=== PATIENT | male | born 1975 | race Caucasian/White ===

== ENCOUNTER 2020-04-08 10:11 | Emergency (ER) | payer BC, SELFPAY ==
[2020-04-08 10:14] VITALS: BP 134/103; PULSE 107; RESP 18; TEMP 36.3; O2SAT 96; BMI 34.9
--- NOTE | 2020-04-08 10:32 | ED.VIS.GEN ---
History of Present Illness Chief Complaint: Upper Extremity Injury Detail of Chief Complaint: Atraumatic neck and upper back pain Informant: Patient Onset: Weeks - 2 weeks ago Context: Sudden Onset Timing: Continuous, Waxes and wanes Quality: Pain and spasm Location: Right posterior neck and trapezius/shoulder region Current Severity: Mild Maximum Severity: Severe Worsened by: Movement of head in any direction and palpation over areas of discomfort Relieved by: Nothing better with ice Associated Symptoms: No neurovascular symptoms Narrative: Patient presents with atraumatic right-sided posterior neck pain. Onset 2 weeks ago. Pain noted upon awakening. He denies radicular pain. He denies paresthesia, anesthesia or motor weakness. Pain is worse with movement and use of heating pad. He states ice helps significantly. He was prescribed NSAID and muscle relaxant . He does have type 2 diabetes. He has been diabetic for 7 years. He does not know if he has renal dysfunction or not. He denies cardiac or respiratory symptoms. He denies headache. He denies visual, ocular auditory symptoms. Prior similar symptoms: No Recent Illness/Hospitalization: No - Past Medical History (1) History of type 2 diabetes mellitus Status: Acute Past Medical History - Allergies and Home Meds Allergies/Adverse Reactions: Allergies No Known Allergies Allergy (Verified 04/08/20 10:11) Primary Care Physician: Idris Dalton MD [Primary Care Provider] - Prior records reviewed: Yes Lives: Spouse/ Significant Other, With Family Smoking Status: Current every day smoker Alcohol: Rare Drugs: None Review of Systems General: Denies: Chills, Fever, Malaise, Subjective, Sweats Eyes: Denies: Visual changes - bilaterally, Blurred Vision - bilaterally ENT: Denies: Bilateral ear pain, Rhinorrhea, Sore throat Cardiovascular: Denies: Chest pain, Palpitations Respiratory: Denies: Dyspnea, Cough Musculoskeletal: Reports: Neck pain. Denies: Myalgias, Arthralgias, Back pain, Swelling, Extremity Pain Neurological: Denies: Headache, Weakness, Parasthesia, Numbness Hematologic: Denies: Easy bruising Physical Exam Vital Signs/Narrative: Vital Signs Temp Pulse Resp BP Pulse Ox 04/08/20 10:14 97.4 F L 107 H 18 134/103 H 96 Inital Vital Signs reviewed: Yes General: Well nourished, Well developed, Obese, No Acute Distress Head: Normocephalic, Atraumatic Eyes: Perrl, EOMI. Negative for: Pale conjunctiva, Scleral icterus Neck: Supple, No lymphadenopathy, No JVD, - - There is pain palpation over the posterior neck on the right side and over the trapezius area.. Negative for: Nontender Skin: Normal color, No rash, No Trauma. Negative for: Cyanosis, Diaphoresis, Jaundice Neurological: Alert, Oriented x3, Cranial nerves II-XII grossly intact, Normal Strength, Normal Sensation, Normal DTR Psychological: Normal affect, Normal Mood Diagnostic/Tx/Re-eval - Medical Decision Making History and physical is consistent with muscle skeletal pain. History is not consistent with herniated disc. Will treat with opiate analgesia since he has type 2 diabetes and Valium for muscle relaxation. He also was instructed to discontinue heat application. ED Disposition - Plan for ED Patient: Disposition: Home or Assisted Living Diagnosis: Neck pain on right side, Pain of right shoulder region Instructions: ED Neck Pain Prescriptions: Hydrocodone Bitart/Apap 5-325 [[place] 5MG-325MG] 1 tab PO Q6H PRN PRN 3 Days #10 tab PRN Reason: Pain Prescription Printed Diazepam [Valium] 5 mg PO Q8 PRN #10 tab PRN Reason: Muscle Spasm Prescription Printed Referrals: Idris Dalton MD [Primary Care Provider] - 1 Week if not improving Additional Instructions: 1. Do not apply heat to the area. 2. Apply ice 6-8 times a day for 20 to 30 minutes. 3. Stop taking the muscle relaxant you were prescribed. 4. With history of diabetes you should not take ibuprofen or NSAIDs. 5. Medication you prescribed may make you drowsy.
[2020-04-08] MEDS: HYDROcodone Bitartrate/Apap 5/325 Tablet PO (10:54)
[2020-04-08] MEDS: diazePAM 5 MG Tablet PO (10:54)
== END 2020-04-08 11:12 | disposition home or self-care (01) ==
LOC: ED 11:01
PROVIDERS: Emergency Provider Emergency Medicine; PCP Family Medicine
DX: M54.2 Cervicalgia (principal); M25.511 Pain in right shoulder; E11.9 Type 2 diabetes mellitus without complications; Z79.84 Long term (current) use of oral hypoglycemic drugs; F17.200 Nicotine dependence, unspecified, uncomplicated
CPT/HCPCS: 99283

== ENCOUNTER → 2020-05-11 10:11 | Outpatient (CLI) | payer BC, SELFPAY ==
--- NOTE | 2020-05-11 10:25 | EKG12_ITS ---
Test Reason : PREOP Blood Pressure : / mmHG Vent. Rate : 106 BPM Atrial Rate : 106 BPM P-R Int : 158 ms QRS Dur : 086 ms QT Int : 328 ms P-R-T Axes : 047 041 033 degrees QTc Int : 435 ms Sinus tachycardia Low voltage QRS Septal infarct , age undetermined Abnormal ECG Confirmed by DAVID DAVIS, RUBY ([id number]), social media editor DUNG BISHOP ([id number]) on 05/11/2020 12:59:03 PM Referred By: Narinder Luu Confirmed By:RUBY HERNANDEZ MD
--- NOTE | 2020-05-11 10:30 | RAD_ITS ---
STUDY: X-RAY CHEST REASON FOR EXAM: Male, 45 years old. PRE OP, No chest complaints TECHNIQUE: PA and lateral views of the chest. COMPARISON: 10/05/2016 FINDINGS: The lungs are clear and expanded. There is no demonstrated pleural abnormality. Normal size heart. Normal mediastinum and azam. Normal visualized pulmonary arteries. Normal visualized aortic arch and descending thoracic aorta. Normal visualized thoracic spine. Normal visualized ribs, clavicles, and shoulders. There is no demonstrated abnormality of the visualized soft tissue structures of the upper abdomen. RAD/Chest PA and Lateral IMPRESSION: Normal x-ray examination of the chest. Electronically Signed: Prabhu Salazar MD at 10:46 EST Tel , Service support ,
[2020-05-11 10:57] LABS: Absolute Lymphocyte Count 3.41 X10^3/uL (0.83-4.51); Absolute Neutrophil Count 7.3 X10^3/uL (2.0-7.7); Basophil# 0.06 X10^3/uL; Basophil% 0.5 % (0-1); Eosinophil# 0.27 X10^3/uL; Eosinophils% 2.3 % (0-5); Hematocrit 49.4 % (40-54); Hemoglobin 17.5 g/dL (13.0-16.5); Lymphocyte # 3.41 X10^3/ul (4.0); Lymphocyte % 28.9 % (19-41); Mean Corp Hgb Conc 35.4 g/dL (32-36); Mean Corpuscular Hgb 34.6 pg (27.0-32.0); Mean Corpuscular Volume 97.6 fL (80-94); Mean Platelet Vol. 9.8 fl (6.2-12.0); Monocyte% 5.9 % (0-10); NRBC Flagged by Analyzer 0 % (0-5); Neutrophil # 7.29 X10^3/uL (2.7-7.7); Platelet Count 272 K/mm3 (150-450); RBC Distribution Width CV 12.8 % (11.6-14.6); Red Blood Count 5.06 M/mm3 (4.6-6.2); White Blood Count 11.8 K/mm3 (4.4-11.0)
[2020-05-11 11:02] LABS: Anion Gap 7 (5-15); BUN 26 mg/dL (7-18); Calcium,Total 9.3 mg/dL (8.5-10.1); Chloride 105 mmol/L (98-107); Creatinine, Serum 1.04 mg/dL (0.70-1.30); EST Glomerular Filtration Rate 82 mL/min (>60); Est Glom Filt Rate - Afr Amer 99 mL/min (>60); Glucose 195 mg/dL (74-106); Potassium 4.2 mmol/L (3.5-5.1); Sodium Level 137 mmol/L (136-145)
[2020-05-11 11:03] LABS: International Normalized Ratio 0.9; Partial Thromboplast Time 25.1 Seconds (24.1-36.2); Prothrombin Time (Protime)PT. 11.7 SECONDS (11.7-14.9)
== END ==
PROVIDERS: PCP Family Medicine; Referring Provider Orthopaedic Surgery; Visit Provider Orthopaedic Surgery
DX: M50.223 Other cervical disc displacement at C6-C7 level (principal); M50.123 Cervical disc disorder at C6-C7 level with radiculopathy; E66.9 Obesity, unspecified
CPT/HCPCS: 36415; 71046; 80048; 83036; 85025; 85610; 85730; 93005

== ENCOUNTER → 2020-05-17 10:40 | Outpatient (CLI) | payer BC, SELFPAY ==
--- NOTE | 2020-05-17 10:42 | ECHOCS_ITS ---
Reason For Study: Dyspnea/SOB Procedure This was a 2D Doppler, Color Flow transthoracic echocardiogram. The study was technically difficult. Contrast injection was performed. Exam performed in department. Left Ventricle Normal LV size. Left ventricular systolic function is normal. The estimated ejection fraction is 55 %. Stage 1 diastolic dysfunction. No regional wall motion abnormalities noted. Right Ventricle Normal RV size. Normal systolic function. Atria Normal left atrium. Mitral Valve Normal mitral valve. Tricuspid Valve Normal tricuspid valve. Aortic Valve The aortic valve is not well visualized. Pulmonic Valve Normal pulmonic valve. Great Vessels Normal aortic root. The pulmonary artery is normal size. Normal inferior vena cava. Pericardium/Pleural No pericardial effusion. Medication 22 gauge I.V. with prn adaptor inserted into right arm. Diluted definity 4ml given slow IV push to enhance endocardial definition. MMode/2D Measurements & Calculations LVIDd: 4.4 cm IVSd: 1.1 cm Ao root diam: 3.9 cm LVIDs: 3.2 cm LVPWd: 1.3 cm LA dimension: 3.4 cm FS: 26.4 % LAV(MOD-bp): 42.2 ml LA A4 area: 15.1 cm2 RA A4 area: 15.4 cm2 LAV(MOD-bp) Indexed: 16.5 ml/m2 LAV(MOD-sp2): 45.0 ml LAV(MOD-sp4): 37.9 ml Time Measurements MV dec time: 0.23 sec Doppler Measurements & Calculations MV E max hadley: 67.6 cm/sec Lat Peak E' Hadley: 8.8 cm/sec Med Peak E' [place]ley: 7.6 cm/sec MV A max hadley: 92.9 cm/sec E/E' lat: 7.6 E/E' med: 8.9 MV E/A: 0.73 MV V2 max: 88.6 cm/sec MV P1/2t max hadley: 64.8 cm/sec Ao V2 max: 113.6 cm/sec MV max P.1 mmHg MV P1/2t: 59.1 msec Ao max P.2 mmHg MV V2 mean: 46.4 cm/sec MV dec slope: 321.1 cm/sec2 MV mean P.0 mmHg MV V2 VTI: 15.8 cm MVA(P1/2t): 3.7 cm2 LV V1 max: 111.3 cm/sec PA V2 max: 93.4 cm/sec LV V1 max P.0 mmHg Interpretation Summary Normal LV size. Left ventricular systolic function is normal. The estimated ejection fraction is 55 %. Stage 1 diastolic dysfunction. Contrast injection was performed. Ordering Physician: Doron Lee Referring Physician: Idris Dalton Performed By: Saroj Almazan RCS
== END ==
PROVIDERS: PCP Family Medicine; Visit Provider Internal Medicine Cardiovascular Disease
DX: R06.02 Shortness of breath (principal)
CPT/HCPCS: 93306; Q9957; A4216; C8929

== ENCOUNTER 2021-06-10 10:39 | Emergency (ER) | payer BC, SELFPAY ==
--- NOTE | 2021-06-10 11:15 | RAD_ITS ---
STUDY: X-RAY - RIGHT KNEE REASON FOR EXAM: Male, 46 years old. TWISTING INJURY YESTERDAY, PAINFUL TO BEAR WEIGHT TECHNIQUE: 4 view(s) of the knee. COMPARISON: None. FINDINGS: Normal visualized distal femur. Normal visualized proximal tibia and fibula. Normal proximal tibiofibular articulation. There is no demonstrated fracture. Status post anterior cruciate ligament repair. Surgical screw traversing the distal femur. Mild narrowing of the medial joint compartment. Chondrocalcinosis. There is a soft tissue prominence in the suprapatellar region suggesting a small volume joint effusion. The soft tissue structures are unremarkable. RAD/Knee 4 or More Views IMPRESSION: Postoperative changes. No demonstrated acute fracture. Small joint effusion. Electronically Signed: Kevin Suh, at 11:32 EST ,
--- NOTE | 2021-06-10 12:29 | EDS_ITS ---
DATE OF SERVICE 06/10/21 CHIEF COMPLAINT: Right knee pain. HISTORY OF PRESENT ILLNESS: This patient is a 46-year-old male who presents with right knee pain that began yesterday. The patient thinks that he twisted his right knee. The patient states that the pain is sharp and stabbing. The patient has had a prior ACL repair of his right knee. The patient is concerned that there may be something damaged with his repair. He states that his pain is worse with ambulation. He states that it is better with rest. He denies any paresthesias or weakness. PAST MEDICAL HISTORY: Diabetes and hypertension. PAST SURGICAL HISTORY: C6-C7 fusion, left shoulder surgery and right knee ACL repair. CURRENT MEDICATIONS: Metformin, Glyburide, Crestor, Farxiga, Fenofibrate, and Lisinopril. SOCIAL HISTORY: The patient smokes 1/2 pack of cigarettes per day. The patient denies any alcohol or drug use. REVIEW OF SYSTEMS: The patient denies any fever or chills. Eyes: The patient denies any visual changes or blurry vision. ENT: The patient denies any sore throat or rhinorrhea. Cardiac: The patient denies any chest pain or palpitations. Pulmonary: The patient denies any shortness of breath or cough. GI: The patient denies any nausea or vomiting. : The patient denies any dysuria or hematuria. MUSCULOSKELETAL: The patient denies any neck pain or back pain. The patient admits to right knee pain as stated in chief complaint. SKIN: The patient denies any rashes or boils. NEUROLOGIC: The patient denies any paresthesias, weakness or headaches. ALLERGIES: Denies hives or swelling. PHYSICAL EXAMINATION: GENERAL: No acute distress. VITAL SIGNS: Stable, afebrile. MUSCULOSKELETAL: Tenderness over the right knee. There is limited range of motion and flexion of the right knee secondary to pain. There is guarding with examination. There is no ligamentous laxity appreciated. Pedal pulses are equal bilaterally. Sensation is intact to light touch in all digits. Capillary refill is less than 2 seconds in all digits. Strength is 5/5 bilaterally in lower extremities. There are no sensory deficits noted. DIAGNOSTIC DATA: X-rays of the right knee show postoperative changes. There is no acute fracture. There is small joint effusion. There were 4 views. These were interpreted by me. They were also interpreted by the radiologist. EMERGENCY DEPARTMENT COURSE AND MEDICAL DECISION MAKING: The patient was given a dose of [place] here. PLAN: The patient was given a prescription for a short course of [place]. The patient was advised of the x-ray results. The patient was instructed to ice and elevated the right knee. The patient was instructed to follow up with his primary care physician in 5-7 days. The patient was instructed to return if worse in any way. The patient understood and was agreeable with the plan all questions were answered. DIAGNOSIS: 1. Right knee sprain DISPOSITION: Patient was discharged home CONDITION: Stable
== END 2021-06-10 12:42 | disposition home or self-care (01) ==
PROVIDERS: Emergency Provider Emergency Medicine; PCP Family Medicine; Visit Provider Emergency Medicine
DX: S83.91XA Sprain of unspecified site of right knee, initial encounter (principal); E11.9 Type 2 diabetes mellitus without complications; Z79.4 Long term (current) use of insulin; X50.1XXA Overexertion from prolonged static or awkward postures, initial encounter; Y93.9 Activity, unspecified; Y92.9 Unspecified place or not applicable; I10 Essential (primary) hypertension; F17.210 Nicotine dependence, cigarettes, uncomplicated; Z79.899 Other long term (current) drug therapy
CPT/HCPCS: 73564; 99283

== ENCOUNTER 2022-04-04 00:21 | Day surgery (SDC) | payer BC, SELFPAY ==
[2022-04-04] VITALS (16 sets, daily range): BP systolic 123–165; BP diastolic 68–105; PULSE 81–112; RESP 15–20; TEMP 36–37.4; O2SAT 91–97; BMI 35.6
--- NOTE | 2022-04-04 00:38 | EDS_ITS ---
HPI HPI - GI History of Present Illness Chief Complaint: Abd Pain Informant: patient Abdominal Pain/Flank Pain Onset: Today Context: Sudden Onset Timing: Continuous Quality: Cramping and Stabbing Location: Diffuse Worsened by: - (Laying on his side) Relieved by: Nothing Nausea/Vomiting/Emesis GI Symptom: Positive for Nausea; Negative for Vomiting Diarrhea/Melena/Hematochezia GI Symptom: Negative for Diarrhea, Melena or Hematochezia Associated Symptoms Associated Symptoms: Negative for Dysuria, Frequency or Hematuria Narrative Narrative: Patient presents with abdominal pain that began today. Patient states it began rather suddenly. Patient states it has been constant since this afternoon. Patient states he had 2 bowel movements earlier today and after the second 1 he started having some pain. Patient states it is diffuse across his abdomen. Patient states it is worse when he lays on his side. Patient admits to some nausea but denies any vomiting. Patient denies any diarrhea, melena, or hematochezia. Patient denies any dysuria, frequency, or hematuria. Patient denies any fevers or chills. Patient states the last time he had anything to eat was dinner last evening at approximately 6:[address] PM[address] [facility] Medical History (Updated 04/04/22 @ 03:[address] Piyush Rasmussen, DO) Depression Hyperlipidemia Nicotine dependence Obesity Type 2 diabetes mellitus Home Medications metformin 1,000 mg tablet 1,000 mg PO BIDCM 04/29/15 [History Last Taken Unknown] rosuvastatin 20 mg tablet 20 mg PO DAILY 04/29/15 [History Last Taken Unknown] dapagliflozin 10 mg tablet 10 mg PO DAILY 03/25/16 [History Last Taken Unknown] fenofibrate 160 mg tablet 160 mg PO DAILY 05/17/20 [History Last Taken Unknown] glyburide 5 mg tablet 15 mg PO BID 05/17/20 [History Last Taken Unknown] insulin degludec 100 unit/mL (3 mL) subcutaneous pen 10 unit subcut DAILY 05/17/20 [History Last Taken Unknown] meloxicam 15 mg tablet (Mobic) 15 mg PO DAILY 05/17/20 [History Last Taken Unknown] paroxetine HCl 30 mg tablet (Paxil) 30 mg PO DAILY 05/17/20 [History Last Taken Unknown] tizanidine 4 mg tablet 4 mg PO Q6H PRN muscle spasms 05/17/20 [History Last Taken Unknown] Allergy/AdvReac Type Severity Reaction Status Date / Time No Known Allergies Allergy Verified 05/17/20 11:38 Family History Mother Heart disease afib CMP Father Heart disease PPM Surgical History (Updated 04/04/22 @ 00:[address] Piyush Rasmussen DO) History of open reduction and internal fixation (ORIF) procedure History of shoulder surgery Hx of fusion of cervical spine Social History Smoking Status: Current every day smoker tobacco type: cigarettes Tobacco: How many years used: 15 ROS ROS ED Constitutional Constitutional ED: Denies chills or fever(s) Eyes Eyes: Denies blurry vision or change in vision ENT ENT ED: Denies rhinorrhea or sore throat Cardiovascular Cardiovascular: Denies chest pain or palpitations Respiratory/Chest Respiratory/Chest: Reports dyspnea; Denies cough Gastrointestinal Gastrointestinal: Reports abdominal pain and nausea; Denies vomiting Genitourinary Genitourinary ED: Denies dysuria or hematuria Musculoskeletal Musculoskeletal: Denies back pain or neck pain Integumentary Denies abscess or rash Neurologic Neurologic: Denies headache(s) or weakness Allergic/Immunologic Allergic/Immunologic ED: Denies mouth swelling or urticaria EXAM Physical Exam Const Vital Signs: 04/04/22 00:22 Temperature 96.8 F L Temperature Source Temporal Pulse Rate 88 Respiratory Rate 15 Blood Pressure 165/105 H Blood Pressure Mean 125 Pulse Ox 97 Oxygen Delivery Method Room Air Positive well nourished and well developed General Appearance ED: well developed HEENT Reports moist mucous membranes Neck supple and no JVD Resp normal respiratory effort and clear to auscultation bilaterally Cardio regular rate, regular rhythm and no murmurs GI normal to inspection, nondistended, normoactive bowel sounds Palpation: soft and tender epigastric, LLQ, RLQ, LUQ, RUQ, periumbilical and suprapubic; Negative for guarding or rebound tenderness present Extremity normal to inspection General Extremety ED: Negative for edema or tenderness General Extremity: Negative for edema Neuro oriented x3, CN's II-XII intact bilaterally and no sensory deficits noted Sensorium / Orientation: alert Motor Exam: strength 5/5 throughout Psych mental status grossly normal Skin no rashes or lesions noted MDM MDM MDM Narrative Medical decision making narrative: Patient was given IV fluids. Patient was given morphine and Zofran. CBC shows normal white blood cell count. Hemoglobin was 17.8. Comprehensive metabolic profile showed a slightly elevated glucose of 204. Lipase was normal. Lactate was normal. Urinalysis does not show any evidence of urinary tract infection. CT scan of the abdomen and pelvis was obtained. There is a thick-walled appendix consistent with appendicitis. This was interpreted by the radiologist and reviewed by myself. Patient was given IV Zosyn. Case was discussed with Dr. Ko. She will plan on taking the patient to the operating room this morning. Patient will be here in the emergency department until that time. Patient was given a repeat dose of Dilaudid. EKG was obtained. On my interpretation, it shows a normal sinus rhythm with a rate of 83. [place] interval, QRS overall, and QTc intervals are within normal limits. [place] is normal. There are no acute ST or T wave changes. There is poor R wave progression. Patient understood and was agreeable with the plan. All questions were answered. Lab Data Attestation: I reviewed the patient's lab results. Labs: Laboratory Results - last 24 hr 04/04/22 04/04/22 04/04/22 00:25 00:25 01:06 WBC 7.3 RBC 5.47 Hgb 17.8 H Hct 52.1 MCV 95.2 H MCH 32.5 H MCHC 34.2 RDW Std Deviation 42.3 RDW Coeff of Kraig 12.0 Plt Count 227 MPV 9.9 Immature Gran % (Auto) 0.100 Neut % (Auto) 63.7 Lymph % (Auto) 27.0 [place] % (Auto) 8.1 Eos % (Auto) 0.8 Baso % (Auto) 0.3 Absolute Neuts (auto) 4.6 Absolute Lymphs (auto) 1.96 Nucleated RBC % 0 Sodium 138 Potassium 4.2 Chloride 104 Carbon Dioxide 27.0 Anion Gap 7 BUN 14 Creatinine 0.85 Estim Creat Clear Calc 127.03 Est GFR (MDRD) Af Amer 124 Est GFR (MDRD) Non-Af 103 BUN/Creatinine Ratio 16.5 Glucose 204 H Lactic Acid 1.3 Calcium 9.1 Total Bilirubin 0.30 AST 27 ALT 48 Alkaline Phosphatase 53 Total Protein 7.3 Albumin 3.8 Globulin 3.5 Albumin/Globulin Ratio 1.1 Lipase 259 Urine Color Urine Clarity Urine pH Ur Specific [place] Urine Protein Urine Glucose (UA) Urine Ketones Urine Occult Blood Urine Nitrite Urine Bilirubin Urine Urobilinogen Ur Leukocyte Esterase Urine RBC Urine WBC Ur Squamous Epith Cells Amorphous Sediment Urine Bacteria Urine Mucus 04/04/22 02:15 WBC RBC Hgb Hct MCV MCH MCHC RDW Std Deviation RDW Coeff of Kraig Plt Count MPV Immature Gran % (Auto) Neut % (Auto) Lymph % (Auto) [place] % (Auto) Eos % (Auto) Baso % (Auto) Absolute Neuts (auto) Absolute Lymphs (auto) Nucleated RBC % Sodium Potassium Chloride Carbon Dioxide Anion Gap BUN Creatinine Estim Creat Clear Calc Est GFR (MDRD) Af Amer Est GFR (MDRD) Non-Af BUN/Creatinine Ratio Glucose Lactic Acid Calcium Total Bilirubin AST ALT Alkaline Phosphatase Total Protein Albumin Globulin Albumin/Globulin Ratio Lipase Urine Color Yellow Urine Clarity Clear Urine pH 7.0 Ur Specific [place] 1.015 Urine Protein Negative Urine Glucose (UA) 1000 H Urine Ketones Negative Urine Occult Blood Negative Urine Nitrite Negative Urine Bilirubin Negative Urine Urobilinogen Normal Ur Leukocyte Esterase Negative Urine RBC 0 SEEN Urine WBC 0 SEEN Ur Squamous Epith Cells 0 SEEN Amorphous Sediment 1+ Urine Bacteria 1+ Urine Mucus 0 SEEN Radiography Diagnostic Testing: Clinical Impression(s) from Imaging Studies Abdomen/Pelvis CT 04/04/22 00:41 IMPRESSION: There is a tubular, thick-walled appendix (>7mm), consistent with acute appendicitis. Electronically Signed: Robin Gilmore MD at 2:58 EST Reading Location ID and State: [facility] / [place] Tel , Service support , ADDENDUM: 04/04/22 0305 IMPRESSION: There is a tubular, thick-walled appendix (>7mm), consistent with acute appendicitis. N.B. : The above Results were Read Back by Robin Gilmore MD to Dr.Eric Grady DO, and understanding confirmed on 04/04/2022 03:01:59 (ET). Electronically Signed: Robin Gilmore MD at 2:58 EST , EKG Initial EKG: Attestation: I personally reviewed and interpreted this EKG as follows: Interpretation: Sinus Rhythm (83) and No Acute Injury Pattern Prior EKG tracings: available for review Prior: Unchanged (10/05/2016) Discharge Plan Dx/Rx/DC Orders Clinical Impression: Acute appendicitis, Type 2 diabetes mellitus Disposition Disposition: Acute Care Hospital [facility]
--- NOTE | 2022-04-04 00:41 | CT_ITS ---
We are attempting to reach an attending provider to discuss findings. An addendum with communication details will be sent when the communication is complete. STUDY: CT ABDOMEN AND PELVIS WITH CONTRAST REASON FOR EXAM: Male, 47 years old. Abdominal pain -- IV PO Contrast RADIATION DOSAGE (If Supplied By Facility): CTDIvol = ( 29.92 ) mGy, DLP = ( 1815.09 ) mGycm TECHNIQUE: Transaxial images were obtained from the dome of the diaphragm to the symphysis pubis without oral contrast. Oral and amp; IV Gastrografin and amp; 100mL Isovue-370 was administered. Sagittal and coronal images were reconstructed. Individualized dose optimization techniques were used for this CT. COMPARISON: None. FINDINGS: The visualized lung bases are unremarkable. The visualized portions of the heart are within normal limits. Normal liver. Normal gallbladder and extrahepatic biliary system. Normal spleen. Normal pancreas. Normal bilateral adrenal glands. Normal right kidney. Normal left kidney. Normal visualized stomach. Normal small intestine. Normal colon. There is a tubular, thick-walled appendix (>7mm), consistent with acute appendicitis. Normal abdominal aorta. Normal inferior vena cava. Normal retroperitoneum. Normal urinary bladder. Normal abdominal wall. Normal osseous structures. CT/Abdomen/Pelvis WITH Contrast IMPRESSION: There is a tubular, thick-walled appendix (>7mm), consistent with acute appendicitis. Electronically Signed: Robin Gilmore MD at 2:58 EST ,
[2022-04-04] MEDS: 0.9% Normal Saline 1,000 ML 1000 ML IV ×2 (01:03→03:27)
[2022-04-04] MEDS: Morphine 4 MG/ML Syringe IV ×3 (01:04→04:22)
[2022-04-04] MEDS: Ondansetron 4 MG/2 ML Vial IV (01:04)
[2022-04-04 01:20] LABS: Absolute Lymphocyte Count 1.96 X10^3/uL (0.83-4.51); Absolute Neutrophil Count 4.6 X10^3/uL (2.0-7.7); Basophil# 0.02 X10^3/uL; Basophil% 0.3 % (0-1); Eosinophil# 0.06 X10^3/uL; Eosinophils% 0.8 % (0-5); Hematocrit 52.1 % (40-54); Hemoglobin 17.8 g/dL (13.0-16.5); Lymphocyte # 1.96 X10^3/ul (0.83-4.51); Mean Corp Hgb Conc 34.2 g/dL (32-36); Mean Corpuscular Hgb 32.5 pg (27.0-32.0); Mean Corpuscular Volume 95.2 fL (80-94); Mean Platelet Vol. 9.9 fl (6.2-12.0); Monocyte# 0.59 X10^3/uL; Monocyte% 8.1 % (0-10); NRBC Flagged by Analyzer 0 % (0-5); Neutrophil # 4.63 X10^3/uL (2.7-7.7); Neutrophil % 63.7 % (47-70); Platelet Count 227 K/mm3 (150-450); RBC Distribution Width SD 42.3 fl (35.1-43.9); Red Blood Count 5.47 M/mm3 (4.6-6.2); White Blood Count 7.3 K/mm3 (4.4-11.0)
[2022-04-04 01:37] LABS: ALB/GLOB Ratio 1.1 RATIO (0.9-2.4); AST(SGOT) 27 U/L (15-37); Alanine Aminotransfer ALT/SGPT 48 U/L (16-61); Albumin, Serum 3.8 g/dL (3.2-5.0); Alkaline Phosphatase 53 U/L (45-117); Anion Gap 7 (5-15); BUN 14 mg/dL (7-18); BUN/Creat Ratio 16.5 RATIO (10-20); Calcium,Total 9.1 mg/dL (8.5-10.1); Chloride 104 mmol/L (98-107); Creatinine, Serum 0.85 mg/dL (0.70-1.30); EST Glomerular Filtration Rate 103 mL/min (>60); Est Glom Filt Rate - Afr Amer 124 mL/min (>60); Estimated Creatinine Clearance 127.03 ml/min; Globulin 3.5 g/dL (2.2-4.2); Glucose 204 mg/dL (74-106); Lipase 259 U/L (73-393); Potassium 4.2 mmol/L (3.5-5.1); Protein, Total 7.3 g/dL (6.4-8.2); Sodium Level 138 mmol/L (136-145)
[2022-04-04 01:47] LABS: Lactic Acid 1.3 mmol/L (0.4-1.9)
[2022-04-04 02:28] LABS: Color, Urine Yellow (Yellow); Glucose, Dipstick 1000 mg/dl (Normal); Ketone-Dipstick Negative (Negative); Leukocyte Esterase-Dipstick Negative /ul (Negative); Mucous, Urine 0 SEEN /hpf (<or=2+); Nitrite-Dipstick Negative (Negative); Occult Blood-Urine Negative /ul (Negative); Protein-Dipstick Negative (Negative); Red Blood Cells-Urine 0 SEEN /hpf (0-5); Specific Gravity, Urine 1.015 (1.002-1.030); Squamous Epithelial Cells - UA 0 SEEN /hpf (0-5); Urine Bilirubin Dipstick Negative (Negative); Urine Clarity Clear (Clear); Urine Urobilinogen Normal (Normal); White Blood Cells 0 SEEN /hpf (0-5)
[2022-04-04 02:34] LABS: Amorphous Sediment 1+; Bacteria 1+ /hpf (None Seen)
--- NOTE | 2022-04-04 03:18 | EKG12_ITS ---
Test Reason : DYSRHYTHMIA Blood Pressure : / mmHG Vent. Rate : 083 BPM Atrial Rate : 083 BPM P-R Int : 162 ms QRS Dur : 090 ms QT Int : 360 ms P-R-T Axes : 043 023 032 degrees QTc Int : 423 ms Normal sinus rhythm Low voltage QRS Septal infarct , age undetermined Abnormal ECG Confirmed by DAVID DAVIS, RUBY ([id number]), senior technical editor CRISTOFER TAYLOR ([id number]) on 04/04/2022 9:14:42 AM Referred By: LEANDRO Confirmed By:RUBY HERNANDEZ MD
--- NOTE | 2022-04-04 03:22 | PCM.HP.STD ---
HPI - General General Date of Admission: 04/04/22 HPI Narrative HANY ARZOLA, is a 47 M who presents to the ER due to generalized abdominal pain. This is localized right lower quadrant earlier this morning. CT abdomen pelvis was consistent with acute appendicitis. White blood count within normal limits. Patient never had previous abdominal surgery. [facility] Medical History Depression Hyperlipidemia Nicotine dependence Obesity Type 2 diabetes mellitus Home Medications metformin 1,000 mg tablet 1,000 mg PO BIDCM 04/29/15 [History Last Taken Unknown] rosuvastatin 20 mg tablet 20 mg PO DAILY 04/29/15 [History Last Taken Unknown] dapagliflozin 10 mg tablet 10 mg PO DAILY 03/25/16 [History Last Taken Unknown] fenofibrate 160 mg tablet 160 mg PO DAILY 05/17/20 [History Last Taken Unknown] glyburide 5 mg tablet 15 mg PO BID 05/17/20 [History Last Taken Unknown] insulin degludec 100 unit/mL (3 mL) subcutaneous pen 10 unit subcut DAILY 05/17/20 [History Last Taken Unknown] meloxicam 15 mg tablet (Mobic) 15 mg PO DAILY 05/17/20 [History Last Taken Unknown] paroxetine HCl 30 mg tablet (Paxil) 30 mg PO DAILY 05/17/20 [History Last Taken Unknown] tizanidine 4 mg tablet 4 mg PO Q6H PRN muscle spasms 05/17/20 [History Last Taken Unknown] Allergy/AdvReac Type Severity Reaction Status Date / Time No Known Allergies Allergy Verified 05/17/20 11:38 Family History Mother Heart disease afib CMP Father Heart disease PPM Surgical History History of open reduction and internal fixation (ORIF) procedure History of shoulder surgery Hx of fusion of cervical spine Social History Smoking Status: Current every day smoker tobacco type: cigarettes Tobacco: How many years used: 15 Vital Signs Vital Signs Vital Signs: 04/04/22 00:22 Temperature 96.8 F L Temperature Source Temporal Pulse Rate 88 Respiratory Rate 15 Blood Pressure 165/105 H Blood Pressure Mean 125 Pulse Ox 97 Oxygen Delivery Method Room Air Weight Weight: 284 lb 13.396 oz Body Mass Index (BMI) 35.6 Results Lab / Micro Data Result Diagrams: 04/04/22 00:25 04/04/22 00:25 Labs: Laboratory Results - last 24 hr 04/04/22 00:25: WBC 7.3, RBC 5.47, Hgb 17.8 H, Hct 52.1, MCV 95.2 H, MCH 32.5 H, MCHC 34.2, RDW Std Deviation 42.3, RDW Coeff of Kraig 12.0, Plt Count 227, MPV 9.9, Immature Gran % (Auto) 0.100, Neut % (Auto) 63.7, Lymph % (Auto) 27.0, Yancey % (Auto) 8.1, Eos % (Auto) 0.8, Baso % (Auto) 0.3, Absolute Neuts (auto) 4.6, Absolute Lymphs (auto) 1.96, Nucleated RBC % 0 04/04/22 00:25: Sodium 138, Potassium 4.2, Chloride 104, Carbon Dioxide 27.0, Anion Gap 7, BUN 14, Creatinine 0.85, Estim Creat Clear Calc 127.03, Est GFR (MDRD) Af Amer 124, Est GFR (MDRD) Non-Af 103, BUN/Creatinine Ratio 16.5, Glucose 204 H, Calcium 9.1, Total Bilirubin 0.30, AST 27, ALT 48, Alkaline Phosphatase 53, Total Protein 7.3, Albumin 3.8, Globulin 3.5, Albumin/Globulin Ratio 1.1, Lipase 259 04/04/22 01:06: Lactic Acid 1.3 04/04/22 02:15: Urine Color Yellow, Urine Clarity Clear, Urine pH 7.0, Ur Specific Chapman 1.015, Urine Protein Negative, Urine Glucose (UA) 1000 H, Urine Ketones Negative, Urine Occult Blood Negative, Urine Nitrite Negative, Urine Bilirubin Negative, Urine Urobilinogen Normal, Ur Leukocyte Esterase Negative, Urine RBC 0 SEEN, Urine WBC 0 SEEN, Ur Squamous Epith Cells 0 SEEN, Amorphous Sediment 1+, Urine Bacteria 1+, Urine Mucus 0 SEEN Radiology Impression Abdomen/Pelvis CT 04/04/22 00:41 IMPRESSION: There is a tubular, thick-walled appendix (>7mm), consistent with acute appendicitis. Electronically Signed: Robin Gilmore MD at 2:58 EST , ADDENDUM: 04/04/22 0308 IMPRESSION: There is a tubular, thick-walled appendix (>7mm), consistent with acute appendicitis. N.B. : The above Results were Read Back by Robin Gilmore MD to Dr.Eric Grady DO, and understanding confirmed on 04/04/2022 03:01:59 (ET). Electronically Signed: Robin Gilmore MD at 2:58 EST , Assessment & Plan Assessment/Plan (1) Acute appendicitis: PLAN: Plan 1. Discussed procedure laparoscopic appendectomy, possible open along with the risk but not limited to bleeding, infection/abscess, injury to another organ (small bowel, colon, etc.), adhesion, hernia at incision sites, and anesthesia. Patient no further question this time. Di Ko M.D. Pager: [phone] [facility] [address] [place] [address], [address] [place] [id number] Office: [phone]
[2022-04-04] MEDS: HYDROmorphone 1 MG/ML Syringe 0.5 MG IV (03:28)
--- NOTE | 2022-04-04 06:50 | APP_PTH ---
PATIENT: HANY ARZOLA LOC: [facility] U#:[id number] AGE/SX: 47/M ROOM: RE04/04/[address]: Dr. Di Ko MD : 1975 BED: DIS: 04/04/2022 SPEC #: [id number] RECD: 04/04/22 10:04 STATUS: LOWELL REQ #: [id number] FRANCESCA: 04/04/22 06:[address]: Di Ko DEPT: SURGICAL PATHOLOGY RECD BY: Nadine Hassan ENTERED: 04/04/22 10:27 SP TYPE: APPENDIX OTHR DR: Dr. Idris Dalton MD Tissues: Appendix, NOS Procedures: Surgery Specimen Level III HEADER OPERATION: Laparoscopic appendectomy PRE-OP DIAGNOSIS: Acute appendicitis TISSUE SUBMITTED: Appendix MICROSCOPIC DIAGNOSIS Appendix, appendectomy: Acute appendicitis and periappendicitis. MADAN:santa 04/06/2022 MICROSCOPIC DESCRIPTION Slides are reviewed. GROSS DESCRIPTION Received in fixative is one container labeled with the patient's name and designated appendix. The specimen consists of an appendix measuring 9 cm in length and up to 1 cm in diameter. The attached periappendiceal adipose tissue measures up to 1.5 cm in width. The serosa is congested and covered focally with vyas, purulent exudate. The lumen contains fecal material. No fecalith is identified. Lathe Spotter sections are submitted in two cassettes. / SJ:santa 04/04/2022 TC:2 CPT: 91454
[2022-04-04] MEDS: Bupivacaine 0.25% 30 ML Vial (07:08)
--- NOTE | 2022-04-04 07:18 | OP.PCM_ITS ---
Report of Operation Date of Procedure: 04/04/22 Pre-Operative Diagnosis: Acute appendicitis Post-Operative Diagnosis: Same Surgery/Procedure Performed:: Laparoscopic appendectomy Surgeon: Di Ko Type of Anesthesia: General/Supplemental Anesthesiologist: Brittney Evans Special Medications: Zosyn 4.5 g IV x1 in ER for acute appendicitis Specimen's removed: Appendix Estimated Blood Loss (mL): < 10 cc Description of Procedure: Indications: 47-year-old male presented to the ER with new right lower quadrant pain this morning. On workup he was found to have acute appendicitis on CT and a leukocytosis of 7.3. Patient was started on antibiotics in the ER for acute appendicitis-Zosyn 4.5 g IV x1 Description of the procedure: The patient was placed on operating table in supine position. General anesthesia was induced. A timeout was completed verifying correct patient, procedure, position and special equipment prior to beginning procedure. Abdomen was prepped and draped in usual sterile fashion. Incision was made in the natural skin line above the umbilicus with a 15 blade scalpel. The fascia was elevated and incised. Entry into the peritoneum was confirmed visually and no bowel was noted in the vicinity of the incision. The Kelly trocar was placed under direct vision. Abdomen insufflated with a pressure of 12-15 mmHg. Patient tolerated insertion well. The scope was inserted and the abdomen inspected. No injuries from initial trocar placement were noted. Minimal amount of fluid was seen in the right lower quadrant. An direct visualization 2 -5 mm trocars were placed one above the symphysis pubis and below the hairline and one in the left lower quadrant l ateral to the rectus muscle. Care is taken to avoid injury to the bladder and inferior epigastric vessels. The table was placed in Trendelenburg position with the right side elevated. The appendix was grasped with atraumatic grasper and elevated. It was noted to be inflamed. A window was developed in the mesoappendix at the point between the base of the appendix and the cecum. An endoscopic 45 mm linear cutting stapler blue load was then used to divide and staple the base of the appendix. Enseal was used to divide the mesoappendix The appendix was withdrawn into the Kelly trocar after being placed endoscopically retrieval bag. Appendix was sent to pathology. The appendiceal stump was then irrigated and hemostasis was assured. Fluid was suctioned no other pathology was identified. Secondary trochars were removed under direct visualization. No bleeding was noted trocar sites. The laparoscope withdrawn and the umbilical trocar removed. The abdomen was allowed to collapse. Local anesthesia of 20 mL of 0.5% Marcaine was used at the incision sites. The umbilical trocar site was closed with the [id number] 0 Vicryl suture. The skin was closed using sutures of 4-0 Monocryl and Steri-Strips. The patient was extubated. The patient tolerated the procedure well and was taken to the postanesthesia care unit in satisfactory condition. Complications none
--- NOTE | 2022-04-04 07:19 | DCINST_ITS ---
Discharge Instructions Diet Discharge Diet: Light diet - advance as tolerated Activity Discharge Activity: May Not Drive (while taking narcotic pain medications.) May shower in (days): 1 Lifting Restrictions: no lifting >20 lbs x 2 wks, no strenuous exercise for 4 wks Dressing / Incision Call your doctor if your incision/area has: Continuous Slow Oozing, Sudden Increased Bleeding, Increased Pain/ Swelling, Increased Redness, Foul Smelling Discharge and Swelling at the incision site Call your doctor if you observe: Fever of 101 or Higher Remove Dressing in: 2 days Cleanse incision/area with: Soap & Water Additional Dressing/Incision Instructions:: Steri-Strips will fall off in 7 to 10 days, if they do not fall off okay to remove after 10 days. Follow Up Care Please Follow Up With: Di Ko MD When: Call the office for a follow-up appointment 2 weeks; after 5 PM and on the weekends call [phone] with any concerns. Test Results: Test results from this visit will be discussed in further detail at your follow- up appointment, if applicable. Discharge Plan Admission Admit Date/Time: 04/04/22 03:18 Attending Provider: Di Ko Primary Care Provider: Idris Dalton Discharge Orders/Prescriptions Prescriptions: New oxycodone-acetaminophen 5-325 mg tablet 1 - 2 tab PO Q6H PRN (Reason: pain) 3 Days Qty: 18 0RF Continued insulin degludec 100 unit/mL (3 mL) insulin pen 10 unit SC DAILY meloxicam [Mobic] 15 mg tablet 15 mg PO DAILY tizanidine 4 mg tablet 4 mg PO Q6H PRN (Reason: muscle spasms) paroxetine HCl [Paxil] 30 mg tablet 30 mg PO DAILY fenofibrate 160 mg tablet 160 mg PO DAILY rosuvastatin 20 MG tablet 20 mg PO DAILY glyburide 5 mg tablet 15 mg PO BID dapagliflozin 10 MG tablet 10 mg PO DAILY Held metformin 1,000 MG tablet 1,000 mg PO BIDCM Hold Instructions: 48 hr due to IV contrast with CT a/p Referrals / Follow Up: Idris Dalton MD [Primary Care Provider] - Disposition Disposition (needs filled in before D/C Order can be placed): Home, Self Care
[2022-04-04 08:06] LABS: Bedside Glucose 253 mg/dL (74-106)
[2022-04-04] MEDS: oxyCODONE 5 MG Tablet PO (10:08)
[2022-04-04] MEDS: Acetaminophen 325 MG Tablet PO (10:08)
--- NOTE | 2022-04-04 11:14 | PHA.DC.MR ---
Pharmacy Service has performed discharge medication reconciliation for this patient. The patient's discharge medication list was reviewed for discrepancies and discrepancies were resolved. Medication education papers prepared, patient discharged before I was able to cosmetic counselor. Home Medications metformin 1,000 mg tablet 1,000 mg PO BIDCM 04/29/15 rosuvastatin 20 mg tablet 20 mg PO DAILY 04/29/15 dapagliflozin 10 mg tablet 10 mg PO DAILY 03/25/16 fenofibrate 160 mg tablet 160 mg PO DAILY 05/17/20 glyburide 5 mg tablet 15 mg PO BID 05/17/20 insulin degludec 100 unit/mL (3 mL) subcutaneous pen 10 unit subcut DAILY 05/17/20 meloxicam 15 mg tablet (Mobic) 15 mg PO DAILY 05/17/20 paroxetine HCl 30 mg tablet (Paxil) 30 mg PO DAILY 05/17/20 tizanidine 4 mg tablet 4 mg PO Q6H PRN muscle spasms 05/17/20 oxycodone-acetaminophen 5 mg-325 mg tablet 1 - 2 tab PO Q6H PRN pain 3 days #18 tabs 04/04/22
[2022-04-04] MEDS: Ipratropium/Albuterol Sulfate 3 ML AMPUL.NEB INHALATION (11:36)
--- NOTE | 2022-04-04 12:26 | SUR.PHASEII ---
DISCHARGE INSTRUCTION AND DISCHARGE WAS DONE BY ANDRE Erickson RN NOT PABLO Fagan. COMPUTER WAS STILL UNDER PABLO WHEN CHARTED.
== END 2022-04-04 12:24 | disposition home or self-care (01) ==
LOC: ED 05:32 → MS3 07:19 → SDC 11:07 → AC 11:07
PROVIDERS: Emergency Provider Emergency Medicine; PCP Family Medicine; Referring Provider Surgery; Visit Provider Surgery
PROC: 0DTJ4ZZ Resection of Appendix, Percutaneous Endoscopic Approach (ICD-10-PCS; CPT 44970; principal; 2022-04-04 06:30)
DX: K35.80 Unspecified acute appendicitis (principal); E11.9 Type 2 diabetes mellitus without complications; Z79.4 Long term (current) use of insulin; F17.210 Nicotine dependence, cigarettes, uncomplicated; E78.5 Hyperlipidemia, unspecified; F32.A Depression, unspecified; Z79.84 Long term (current) use of oral hypoglycemic drugs; Z79.899 Other long term (current) drug therapy
CPT/HCPCS: 44970; 00840; 74177; 80053; 81001; 82962; 83605; 83690; 85025; 88304; 93005; 94640; 99283; J7030; Q9967; A4216; C1760; J2405

== ENCOUNTER 2024-03-20 11:25 | Emergency (ER) | payer BC, SELFPAY ==
[2024-03-20 11:25] VITALS: BP 149/95; PULSE 100; RESP 16; TEMP 36.6; O2SAT 100; BMI 31.8
[2024-03-20] MEDS: Ketorolac 30 MG/ML Syringe IM (12:09)
[2024-03-20 13:53] VITALS: BP 149/95; PULSE 100; RESP 16; TEMP 36.6; O2SAT 100
== END 2024-03-20 13:54 | disposition home or self-care (01) ==
PROVIDERS: Emergency Provider Surgery; PCP Family Medicine; Visit Provider Surgery
DX: S83.91XA Sprain of unspecified site of right knee, initial encounter (principal); E11.9 Type 2 diabetes mellitus without complications; E78.5 Hyperlipidemia, unspecified; F17.210 Nicotine dependence, cigarettes, uncomplicated; X58.XXXA Exposure to other specified factors, initial encounter
CPT/HCPCS: 73564; 96372; 99282

== ENCOUNTER 2025-02-23 07:39 | Emergency (ER) | payer BC, SELFPAY ==
[2025-02-23 07:41] VITALS: BP 140/109; PULSE 131; RESP 16; TEMP 36.6; O2SAT 98; BMI 32.6
--- NOTE | 2025-02-23 07:44 | EKG12_ITS ---
Test Reason : AARYTHMIA Blood Pressure : */* mmHG Vent. Rate : 137 BPM Atrial Rate : * BPM P-R Int : * ms QRS Dur : 86 ms QT Int : 282 ms P-R-T Axes : * 22 45 degrees QTcB Int : 425 ms Supraventricular tachycardia Low voltage QRS Septal infarct (cited on or before 11-May-2020) Abnormal ECG Confirmed by DAVID DAVIS, RUBY ([id number]), editor index SUSAN DAILEY ([id number]) on 02/24/2025 10:49:04 AM Referred By: IVA Confirmed By: RUBY HERNANDEZ MD
[2025-02-23] MEDS: 0.9% Normal Saline (1000mL) 1,000 ML 999 ML IV (07:52)
[2025-02-23 07:54] LABS: Hematocrit 53.4 % (40-54); Immature Granulocytes Count 0.060 X10^3/uL (0.0-0.0); Mean Corp Hgb Conc 34.8 g/dL (32-36); Mean Corpuscular Volume 93.5 fL (80-94); Mean Platelet Vol. 9.7 fl (6.2-12.0); NRBC Flagged by Analyzer 0 % (0-5); Platelet Count 290 K/mm3 (150-450); RBC Distribution Width CV 12.1 % (11.6-14.6); RBC Distribution Width SD 41.6 fl (35.1-43.9); Red Blood Count 5.71 M/mm3 (4.6-6.2); White Blood Count 14.0 K/mm3 (4.4-11.0)
[2025-02-23 08:00] LABS: Hemoglobin 18.6 g/dL (13.0-16.5)
--- NOTE | 2025-02-23 08:05 | RAD_ITS ---
PROCEDURE: CHEST PA AND LATERAL 02/23/2025 REASON FOR EXAM: CHEST PAIN TECHNIQUE: Procedure Code: RADCXR Modality: DX Procedure: CHEST PA AND LATERAL COMPARISON: None FINDINGS: Heart size and mediastinal configuration are within normal limits. There is no focal infiltrate or consolidation. There is no pneumothorax or effusion. There is no acute bony abnormality. Atherosclerotic calcifications are visible. Hardware is noted in the cervical spine. RAD/Chest PA and Lateral IMPRESSION: No acute process is identified in the chest. Reading Location: [facility]
--- NOTE | 2025-02-23 08:12 | ED.VIS.CHEST ---
HPI History of Present Illness Chief Complaint: Chest Pain Narrative Narrative: Patient is a 49-year-old male with past medical history of depression, type II abuse, hyperlipidemia who presents to the emergency department chief complaint of chest pressure. He states that he woke up this morning and noted that his heart was racing and he had chest pressure. He states that he went to work and was feeling unwell. He states that at work he was given 2 aspirin and EMS was called they gave 2 more aspirin and a nitroglycerin. He states that the nitro did improve his chest pain down to a 7 out of 10 from a 9 out of 10. Patient denies recent travel history denies any history of blood clots. Denies any history of IV drug use denies alcohol use. Patient does not know if he had a stress test in the past or not [facility] Medical History Encounter for screening for malignant neoplasm of colon Depression Nicotine dependence Obesity Hyperlipidemia Type 2 diabetes mellitus Home Medications ?Medication ?Instructions ?Recorded ?Last Taken ?Type metformin 1,000 mg tablet 1,000 mg PO BIDCM 04/29/15 Unknown History Held on 04/04/22. Instructions: 48 hr due to IV contrast with CT a/p rosuvastatin 20 mg tablet 20 mg PO DAILY 04/29/15 Unknown History dapagliflozin propanediol 10 mg 10 mg PO DAILY 03/25/16 Unknown History tablet fenofibrate 160 mg tablet 160 mg PO DAILY 05/17/20 Unknown History glyburide 5 mg tablet 15 mg PO BID 05/17/20 Unknown History insulin degludec 100 unit/mL (3 10 unit subcut DAILY 05/17/20 Unknown History mL) subcutaneous pen meloxicam 15 mg tablet (Mobic) 15 mg PO DAILY 05/17/20 Unknown History paroxetine HCl 30 mg tablet (Paxil) 30 mg PO DAILY 05/17/20 Unknown History tizanidine 4 mg tablet 4 mg PO Q6H PRN muscle spasms 05/17/20 Unknown History metoprolol succinate 25 mg 25 mg PO DAILY #30 tabs 02/23/25 Unknown Rx tablet,extended release 24 hr Allergy/AdvReac Type Severity Reaction Status Date / [facility] Allergy Unknown Swelling Verified 03/20/24 11:25 Family History Mother Heart disease afib CMP Father Heart disease PPM Surgical History S/P laparoscopic appendectomy Hx of fusion of cervical spine History of open reduction and internal fixation (ORIF) procedure History of shoulder surgery Social History Smoking Status: Current every day smoker tobacco type: cigarettes Tobacco: How many years used: 15 ROS ROS ED ROS Narrative Constitutional: States that he developed headache after the nitro was given denies any fevers or chills Eyes: Denies double vision Cardiovascular: Complains of chest discomfort as noted above states that is in the left chest does not radiate aware complains of palpitations as noted above Respiratory: Denies coughing wheezing shortness of breath Abdomen: Denies abdominal pain vomiting diarrhea : Denies any urinary symptoms Neurological: Denies numbness, weakness, tingling Musculoskeletal: Denies back pain Skin: Denies any rashes or lesions EXAM Physical Exam Narrative Exam Narrative: General: Patient is lying in bed rest comfortably did not appear to be acute distress Head: Atraumatic, normocephalic Eyes: PERRL bilaterally, EOMI bilateral, no conjunctival injection noted Neck: Soft, supple, trachea midline Cardiovascular: Patient tachycardic with a regular rhythm Respiratory: Clear to auscultation bilaterally Abdomen: Soft, nondistended, nontender to palpation Extremities: Radial pulses +2/4 in the bilateral extremities, +5/5 strength noted in the bilateral upper and lower extremities Neurological: Patient fine commands and that he was at [facility] the year is 2024 Skin: Warm, dry, intact no rashes or lesions noted Const Vital Signs: 02/23/25 07:41 02/23/25 07:48 02/23/25 08:40 Temperature 98 F Temperature Source Oral Pulse Rate 131 H 137 H Respiratory Rate 16 18 Blood Pressure 140/109 H 115/75 Blood Pressure Mean 119 88 Pulse Ox 98 99 Oxygen Delivery Method Room Air Room Air 02/23/25 09:00 02/23/25 10:00 02/23/25 11:00 Temperature Temperature Source Pulse Rate 135 H 130 H 118 H Respiratory Rate 18 18 16 Blood Pressure 118/72 120/70 123/68 H Blood Pressure Mean 87 86 86 Pulse Ox 99 99 99 Oxygen Delivery Method MDM MDM MDM Narrative Medical decision making narrative: Patient is a 49-year-old male who presented to the emergency department with a chief complaint of chest pain and palpitations. On the differential diagnose includes but not limited to ACS, pneumonia, pneumothorax, electrolyte abnormality,, supraventricular tachycardia versus other cardiac arrhythmia. Patient be given IV fluids once again he was already given 4 baby aspirin as well as nitroglycerin. Patient is a CBC reviewed and showed a leukocytosis of 14,000 is likely reactive, hemoglobin is 18.6, plate count was noted be 290. Patient's INR normal at 0.9, PT normal at 12.7. Patient D-dimer was less than 0.27. Patient sodium is 135, potassium is 4.6, creatinine 0.94. Patient's troponin was noted be 20 with a delta troponin of 14 proBNP was notably normal at 182. Patient magnesium level normal at 2.2. Patient is EKG here in the emergency department did show evidence of supraventricular tachycardia with a rate of 137 beats per minutes patient had a repeat EKG after 2 L of fluid and his heart rate slowed down and repeat EKG showed sinus tachycardia with a rate of 103 bpm. This was compared to previous EKG from April 04, 2022 which showed sinus rhythm with a rate of 83 bpm. Called and discussed with on-call oncology patient navigator Dr. Lee who believe the patient can go home and follow-up in the outpatient setting we will start the patient on metoprolol extended release 25 mg once daily he will be given his first dose here in the emergency department. He is encouraged return with worsening symptoms or any concerns. He is agreeable to plan all question concerns answered is discharged home in stable condition Lab Data Labs: Laboratory Results - last 24 hr 02/23/25 02/23/25 07:20 10:08 WBC 14.0 H RBC 5.71 Hgb 18.6 H* Hct 53.4 MCV 93.5 MCH 32.6 H MCHC 34.8 RDW Std Deviation 41.6 RDW Coeff of Kraig 12.1 Plt Count 290 MPV 9.7 Immature Gran % (Auto) 0.400 Neut % (Auto) 70.4 H Lymph % (Auto) 21.3 Crane % (Auto) 6.3 Eos % (Auto) 1.0 Baso % (Auto) 0.6 Absolute Neuts (auto) 9.8 H Absolute Lymphs (auto) 2.98 Nucleated RBC % 0 PT 12.7 INR 0.9 APTT 24.4 D-Dimer Quant (PE/DVT) < 0.27 L Sodium 135 Potassium 4.6 Chloride 97 L Carbon Dioxide 24.5 Anion Gap 14 BUN 21 H Creatinine 0.94 Estim Creat Clear Calc 130.40 Est GFR (MDRD) Non-Af 99 BUN/Creatinine Ratio 22.7 H Glucose 311 H Calcium 9.9 Magnesium 2.2 Troponin T High Sens 20 Troponin T Hi Sens 2 Hr 14 NT pro BNP II 182 Radiography Diagnostic Testing: Clinical Impression(s) from Imaging Studies Chest X-Ray 02/23/25 08:05 IMPRESSION: No acute process is identified in the chest. Reading [facility] Discharge Plan Triage Chief Complaint: Chest Pain ED Provider: Dionte Blackwood Dx/Rx/DC Orders Clinical Impression: Chest pain, Supraventricular tachycardia, Hyperlipidemia, Type 2 diabetes mellitus Prescriptions: New metoprolol succinate 25 mg tablet extended release 24 hr 25 mg PO DAILY Qty: 30 0RF No Action insulin degludec 100 unit/mL (3 mL) insulin pen 10 unit SC DAILY meloxicam [Mobic] 15 mg tablet 15 mg PO DAILY tizanidine 4 mg tablet 4 mg PO Q6H PRN (Reason: muscle spasms) paroxetine HCl [Paxil] 30 mg tablet 30 mg PO DAILY fenofibrate 160 mg tablet 160 mg PO DAILY metformin 1,000 MG tablet 1,000 mg PO BIDCM rosuvastatin 20 MG tablet 20 mg PO DAILY glyburide 5 mg tablet 15 mg PO BID dapagliflozin propanediol 10 MG tablet 10 mg PO DAILY Stand Alone Forms: Work / School Excuse Primary Care Provider: Idris Dalton Referrals: Doron Lee MD [Med Staff - Active Staff, Cardiology] Idris Dalton MD [Primary Care Provider, Family Practice] Activity Restrictions/Additional Instructions: Follow-up with the cardiology team in the outpatient setting. Return if worsening symptoms or any other concerns. You were given your first dose of metoprolol here in the emergency department the prescription was sent to your pharmacy will start taking again tomorrow as this is a once daily medication. Your blood work did not show any acute findings today. Your EKG did show that you are in a heart rhythm called supraventricular tachycardia as discussed. Print Language: Croatian Disposition Disposition: Home, Self Care
[2025-02-23 08:17] LABS: Partial Thromboplast Time 24.4 Seconds (24.1-36.2); Prothrombin Time (Protime)PT. 12.7 SECONDS (11.7-14.9)
[2025-02-23 08:18] LABS: Anion Gap 14 (5-15); BUN 21 mg/dL (4-19); BUN/Creat Ratio 22.7 RATIO (10-20); Calcium,Total 9.9 mg/dL (7.6-11.0); Carbon Dioxide 24.5 mmol/L (21.0-32.0); Chloride 97 mmol/L (98-108); Estimated Creatinine Clearance 130.40 ml/min (50-250); Glucose 311 mg/dL (70-99); Magnesium 2.2 mg/dL (1.5-2.2); Potassium 4.6 mmol/L (3.3-5.1); Pro- Brain NATRIURETIC PEPTIDE 182 pg/mL (<=900); Troponin T High Sensitivity 20 ng/L (<=22)
[2025-02-23 08:40] VITALS: BP 115/75; PULSE 137; RESP 18; O2SAT 99
[2025-02-23 09:00] VITALS: BP 118/72; PULSE 135; RESP 18; O2SAT 99
[2025-02-23 09:29] LABS: D-Dimer Quantitative (DVT/PE) < 0.27 FEU/ug/m (0.27-0.49)
[2025-02-23 10:00] VITALS: BP 120/70; PULSE 130; RESP 18; O2SAT 99
[2025-02-23 10:47] LABS: Troponin T High Sens 2 HR 14 ng/L (<=22)
[2025-02-23 11:00] VITALS: BP 123/68; PULSE 118; RESP 16; O2SAT 99
--- NOTE | 2025-02-23 11:03 | EKG12_ITS ---
Test Reason : REPEAT Blood Pressure : */* mmHG Vent. Rate : 103 BPM Atrial Rate : 103 BPM P-R Int : 186 ms QRS Dur : 78 ms QT Int : 332 ms P-R-T Axes : 38 3 20 degrees QTcB Int : 434 ms Sinus tachycardia Low voltage QRS Anteroseptal infarct , age undetermined Abnormal ECG Confirmed by DAVID DAVIS, RUBY ([id number]), graphic editor SUSAN DAILEY ([id number]) on 02/24/2025 10:48:48 AM Referred By: TB Confirmed By: RUBY HERNANDEZ MD
[2025-02-23] MEDS: Metoprolol(XL)Succ 25 MG Tablet PO (11:32)
[2025-02-23 11:36] VITALS: BP 107/79; PULSE 103; RESP 16; TEMP 36.7; O2SAT 98
== END 2025-02-23 11:37 | disposition home or self-care (01) ==
PROVIDERS: Emergency Provider Emergency Medicine; PCP Family Medicine; Visit Provider Emergency Medicine
DX: R07.9 Chest pain, unspecified (principal); E11.9 Type 2 diabetes mellitus without complications; Z79.4 Long term (current) use of insulin; I47.10 Supraventricular tachycardia, unspecified; E78.5 Hyperlipidemia, unspecified; Z79.84 Long term (current) use of oral hypoglycemic drugs; Z79.899 Other long term (current) drug therapy; Z90.49 Acquired absence of other specified parts of digestive tract; F17.210 Nicotine dependence, cigarettes, uncomplicated
CPT/HCPCS: 71046; 80048; 83735; 83880; 84484; 85025; 85379; 85610; 85730; 93005; 96360; 96361; 99285; A4216